=== PATIENT | female | born 1965 | race Caucasian/White ===

== ENCOUNTER 2016-12-14 07:02 | Day surgery (SDC) | payer BC ==
[~2016-12-14] VITALS: Ht 162.6 cm; Wt 69.9 kg
[~2016-12-14 07:02] MED LIST: FLAGYL500 MG PO; MULTI-DAY VITAM1 TAB PO; NORCO 7.5/325 T1 TA1 PO; VALTREX1000 MG PO; VALTREX500 MG PO
[2016-12-14 08:06] LABS: HEMATOCRIT 41.6 % (36.0-48.0); HEMOGLOBIN 14.2 g/dL (12-16); MCH 32.3 pg (26.0-34.0); MCHC 34.1 g/dL (31.0-37.0); MCV 94.8 fL (80.0-100.0); MEAN PLATELET VOLUME 10.2 fL (7.4-10.4); RBC 4.39 10x6/uL (4.00-5.40); RDW 12.4 % (11.5-14.5); WBC 5.9 10x3/uL (4.8-10.8)
[2016-12-14] MEDS ORDERED: FLUTICASONE PRO16 GM NASAL (08:09)
[2016-12-14 08:10] VITALS: BP 129/79; Ht 162.6 cm; Wt 69.9 kg
--- NOTE | 2016-12-14 08:41 | NUR ---
PATIENT HAS BELLY BUTTON RING HAS NOT TAKEN OUT IN 20 YEARS WANTS IT LEFT IN SO TAPED AND EXPLAINED RISK FOR BURNING VERBALLY UNDERSTANDS ALSO TOLD [place].
[2016-12-14 08:49] LABS: HCG SERUM NEGATIVE (NEGATIVE)
== END 2016-12-14 14:45 | disposition home or self-care (01) ==
LOC: D.OPS 07:02 → D.PAN 08:00 → D.OPS 08:00
PROVIDERS: Anesthesiology
DX: D12.4 Benign neoplasm of descending colon (principal)